=== PATIENT | male | born 1950 | race American Indian/Alaskan Native ===

== ENCOUNTER 2024-10-29 07:15 | Outpatient (CLI) | payer BC, MEDICARE, OTHER ==
[~2024-10-29] VITALS: Ht 167.6 cm; Wt 68.5 kg
[2024-10-29] MEDS: albuterol 2.5 MG/3 ML nebule NEB ONE (08:21)
[2024-10-29 08:23] VITALS: PULSE 71; RESP 16; O2SAT 98
[2024-10-29 08:36] VITALS: PULSE 80; RESP 16
== END 2024-10-29 23:59 | disposition home or self-care (01) ==
LOC: RT 07:15
PROVIDERS: ATTEND Family Medicine
DX: R09.89 Other specified symptoms and signs involving the circulatory and respiratory systems (principal)
CPT/HCPCS: 94060; 94760; J7030